=== PATIENT | female | born 1980 | race Caucasian/White ===

== ENCOUNTER 2019-10-16 16:29 | Emergency (ER) | payer BC, SELFPAY ==
--- NOTE | ~2019-10-16 | XR_ITS ---
EXAMINATION: XR wrist RT min 3V DATE: 10/16/2019 16:51 INDICATION: Diffuse right knee pain post fall TECHNIQUE: Posteroanterior, ulnar deviation, oblique, and lateral views of the right wrist were obtai sheree. COMPARISON: none FINDINGS: There appears to be slight widening of the scapholunate interval which could be seen with scapholunat e ligament tear. The carpal alignment however appears otherwise normal with no dorsal intercalated se gment instability (DISI). No fracture. Joint spaces are otherwise normal. Soft tissues are unremarkab le. IMPRESSION: 1. No fracture. 2. Slight widening of the scapholunate interval which could be seen with scapholunate ligament tear h owever there is no dorsal intercalated segment instability (DISI) to more specifically suggest this. Reviewed, dictated and finalized at location A. [employer] IMPRESSION: 1. No fracture. 2. Slight widening of the scapholunate interval which could be seen with scapho lunate ligament tear however there is no dorsal intercalated segment instabilit y (DISI) to more specifically suggest this.
[2019-10-16 16:43] VITALS: BP 124/77; PULSE 71; RESP 18; TEMP 37.2; O2SAT 99
--- NOTE | 2019-10-16 16:44 | ED.UPPEXIN ---
HPI - Extremity Injury (Upper) General Chief Complaint: Extremity Injury, Upper Stated Complaint: right wrist pain Time Seen by Provider: 10/16/19 16:44 Source: patient Mode of arrival: ambulatory Limitations: no limitations History of Present Illness HPI narrative: Tania Emerson is a 39 yo female with a PMH of Sfmhr-[id number]-Krpqt who fell while feeding animals in the barn today- onto all 4s. Pain in R wist, able to move arm Related Data Home Medications Medication Instructions Recorded Confirmed citalopram 20 mg DAILY 10/16/19 10/16/19 Allergies Allergy/AdvReac Type Severity Reaction Status Date / Time No Known Allergies Allergy Verified 10/16/19 16:44 Review of Systems Review of Systems: Narrative: CONSTITUTIONAL: Denies fever, chills, sweats. EYES: Denies visual changes, redness, discharge. ENT: Denies rhinorrhea, congestion, sore throat, otalgia. CARDIOVASCULAR: Denies chest pain, palpitations, edema. RESPIRATORY: Denies dyspnea, wheezing, cough GASTROINTESTINAL: Denies abdominal pain, nausea, vomiting, diarrhea. GENITOURINARY: Denies dysuria, hematuria, abnormal discharge SKIN: Denies rash or itching. Extremities; R wrist swollen and painful to move NEUROLOGIC: Denies numbness, or focal weakness. PSYCHIATRIC: Denies anxiety or depression. PMFSH Family History Family History Other Diabetes mellitus Hypertension Social History Social History (Updated 10/16/19 @ 17:25 by Shawnee Feliciano CNP) Smoking status: Never smoker Alcohol intake: never Gender identity (if verbalized by the patient): Female Comments At time of signature, I agree with nursing past medical, surgical, social and family history. There is no relevant family history pertinent to the presenting complaint. Exam Narrative: Exam Narrative: GENERAL: This is a well-nourished, well-developed patient, in no apparent distress. HEAD: normocephalic, atraumatic. EYES: PERRL. Sclera clear/white. Vision is grossly intact. EARS: External ears normal, NOSE: External nose normal . THROAT: Mucous membranes moist, NECK: Neck supple, non-tender without lymphadenopathy, CARDIOVASCULAR: Regular rate and rhythm without murmurs, gallops, or rubs. RESPIRATORY: Clear to auscultation. Breath sounds equal bilaterally. No wheezes, rales, or rhonchi. GASTROINTESTINAL: Abdomen soft, SKIN: warm, intact with no suspicious lesions or rash, good texture and turgor. NEURO: awake, alert, and oriented to person, place and time. There were no obvious focal neurologic abnormalities. Steady gait EXTREMITIES: Limited range of motion.Pian with supination, fair finger strength, poor opposition thumb to finger 4,5. edema. BACK: Nontender without deformity or crepitance. Course Course Emergency Course: Xray wrist: No fracture but widening of the scaphoid lunate interval indicating possible ligament tear patient placed in OCL and referred to orthopedics Vital Signs Vital signs: Vital Signs Temperature 99.0 F 10/16/19 16:43 Pulse Rate 71 10/16/19 16:43 Respiratory Rate 18 10/16/19 16:43 Blood Pressure 124/77 10/16/19 16:43 Pulse Oximetry 99 10/16/19 16:43 Temperature 99.0 F 10/16/19 16:43 Pulse Rate 71 10/16/19 16:43 Respiratory Rate 18 10/16/19 16:43 Blood Pressure 124/77 10/16/19 16:43 Pulse Oximetry 99 10/16/19 16:43 MDM - Extremity Injury (Upper) Differential Diagnosis Differential diagnosis: Likely sprain and strain of wrist, fracture of hand and other (Ligament tear) Discharge Plan Discharge Clinical Impression: Ligament tear Patient Disposition: Home, Self-Care Condition: Stable Instructions: Wrist Injury (ED) Prescriptions: New hydrocodone-acetaminophen [Ola] 5-325 mg tablet 1 tablet PO Q6H PRN (Reason: pain) Qty: 20 RF: 0 No Action citalopram 20 mg tablet 20 mg DAILY RF: 0 Follow-up/Referrals: Kev
== END 2019-10-16 17:33 | disposition home or self-care (01) ==
PROVIDERS: Emergency Provider Nurse Practitioner; PCP Internal Medicine
DX: S63.501A Unspecified sprain of right wrist, initial encounter (principal); X58.XXXA Exposure to other specified factors, initial encounter; I45.6 Pre-excitation syndrome
CPT/HCPCS: 29125; 73110; 99213; G0463

== ENCOUNTER 2021-08-21 15:31 | Outpatient (CLI) | payer OTHER, SELFPAY ==
--- NOTE | 2021-08-21 15:30 | ECG_ITS ---
Measurements Intervals [place] Rate: 73 P: 55 PA: 181 QRS: -24 QRSD: 90 T: -3 QT: 379 QTc: 418 Interpretive Statements SINUS RHYTHM WITH SINUS ARRHYTHMIA POSSIBLE LEFT ATRIAL ENLARGEMENT POSSIBLE LEFT VENTRICULAR HYPERTROPHY POOR R WAVE PROGRESSION, ANTERIOR LEADS BORDERLINE T WAVE ABNORMALITY- INFERIOR LEADS BASELINE ARTIFACT- I, III, AVR, AVL, AVF BORDERLINE ECG Electronically Signed On 08-21-2021 16:12:15 SIGN BOARD ERECTOR by Eligio Donaldson D.O.
== END 2021-08-21 15:32 | disposition home or self-care (01) ==
PROVIDERS: PCP Internal Medicine; Visit Provider Obstetrics & Gynecology
DX: I45.6 Pre-excitation syndrome (principal); Z01.818 Encounter for other preprocedural examination; R94.31 Abnormal electrocardiogram [ECG] [EKG]
CPT/HCPCS: 93005

== ENCOUNTER 2021-08-24 00:54 | Day surgery (SDC) | payer OTHER, SELFPAY ==
[2021-08-20 12:29] VITALS: BMI 45.7
--- NOTE | 2021-08-20 12:36 | PC.NURSE ---
Report to the Outpatient Waiting Room, entrance under the green pavilion located off [facility], at time 1030 on date 08/24/21. OR Time: 1230. - You will be asked a series of questions to screen for COVID 19 for your protection. - A mask is required within the hospital. - No visitors are allowed at this time. Preoperative COVID Testing Requirements: No COVID Test needed if: (proof is required; if not received patient will have Rapid Test prior to entry) - Patient has received COVID Vaccine at least 14 days prior to procedure date or - Patient has positive COVID test result within last 90 days of surgery date. COVID Test needed if above criteria is not met Patients may have clear liquids (water, carbonated beverages, clear teas, apple juice) until 3 hours prior to surgery with a maximum of 20 ounces. - No food from midnight until time of surgery Take the following medications with a SIP of water the morning of surgery: CITALOPRAM Medications to discontinue per physician: N/A Date to take last dose: N/A Please no make-up, nail greek, hairspray, perfume, deodorant, or body powder the day of surgery. No jewelry (including any body piercings) or valuables the day of surgery, leave them at home. Please take a shower or bath the night before, or the morning of, surgery with an antibacterial soap. Wear comfortable, loose fitting clothing. - Jewelry must be removed prior to entering the operating room. Rings and piercings that are not removed may be cut off. - The hospital will not accept responsibility for valuables. - Please leave all valuables, including medications, at home the day of surgery. If you are going home after surgery, a licensed sprinkler driver must drive you home. - NO public transportation without another adult. - We recommend that an adult stay with you for 24 hours following discharge. - We also recommend that you do not drive, make important decision, drink alcoholic beverages, or take any drugs that were not prescribed by your health care provider for at least 24 hours after your discharge time. Follow any additional instructions given to you from your surgeon. Telephone instructions given to ADEOLA DEVI and asked if any additional questions and then verbalized understanding. Patient advised to call surgeon office or pre surgery nurse liaison [phone] if any additional questions.
--- NOTE | 2021-08-22 06:28 | P.HP_ITS ---
H&P: HPI History of Present Illness Date/Time: 08/22/21 06:28 Chief Complaint: 41-year-old female 1 para 1 admitted for laparoscopic bilateral tubal ligation secondary to desiring no further pregnancies. She understands this to be a permanent and irreversible procedure. She was offered alternative treatments including but not exclusive of pills, patches, injections, long-term contraception. Failure rate of 10/999 with subsequent risk of ectopic bleeding and were reviewed. Risks and benefits of the procedure reviewed in full. She had all questions answered received the [employer]COG handout entitled sterilization for men and women. S he asked to proceed Review of Systems Review of Systems: All systems reviewed & are unremarkable except as noted in HPI and below PMFSH Family History Family History Other Diabetes mellitus Hypertension Social History Social History Smoking status: Never smoker Alcohol intake: current Drinks per week: 2 Substance use: never Substance use type: does not use Additional living arrangements comments: DAUGHTER Gender identity (if verbalized by the patient): Female Spiritual care concerns: No Meds Home Medications and Allergies Home Medications Medication Instructions Recorded Confirmed Type citalopram 20 mg PO DAILY 10/16/19 08/20/21 History Allergies Allergy/AdvReac Type Severity Reaction Status Date / Time Sulfa (Sulfonamide Allergy Hives Verified 08/20/21 12:28 Antibiotics) Exam Const: General: no acute distress Eyes: General: appearance normal, both eyes and all related structures Neck: Neck: supple and no JVD Thyroid: thyroid normal Resp: Effort & Inspection: normal respiratory effort Auscultation: clear to auscultation bilaterally Cardio: Rate: regular rate Rhythm: regular rhythm GI: Inspection: non-distended GI Palp: Yes Soft to palpation, No Tenderness to palpation present (GI) and No Guarding due to palpation present (GI) Auscultation: normal bowel sounds : General: Yes bladder normal to palpation External Female Exam: normal external appearance Speculum Exam - Vagina: normal vaginal discharge and No vaginal bleeding Speculum Exam - Cervix: nontender Bimanual exam- vagina & uterus: bladder normal to palpation and No Cervical tenderness present OB/external & speculum: No vaginal bleeding Skin: General skin exam: no rashes or lesions noted Extrem: General: normal to inspection and no edema Psych: Mental Status: mental status grossly normal Affect: normal affect Assessment and Plan Additional Plan impression: 41-year-old female who desires permanent sterilization Plan: Laparoscopic bilateral tubal ligation
[2021-08-24] VITALS (11 sets, daily range): BP systolic 98–156; BP diastolic 55–106; PULSE 62–81; RESP 12–20; TEMP 36.4–37; O2SAT 93–100; BMI 47.5
--- NOTE | 2021-08-24 07:09 | WPDHPUPDATE1 ---
History and Physical Update Update Date/Time: 08/24/21 07:09 History and Physical has been reviewed, including an updated exam of the patient. There are NO changes in the patient's condition. Risks, benefits, and alternatives have been discussed and questions answered. Patient agrees to proceed with procedure.
[2021-08-24] MEDS: ACETAMINOPHEN 500 MG TABLET 1000 MG PO (11:09)
[2021-08-24] MEDS: LACTATED RINGERS 1,000 ML 30 ML IV CONT ×2 (11:09→13:06)
[2021-08-24] MEDS: KETOROLAC 15 MG/ML VIAL (*BKC) IV PUSH (11:09)
--- NOTE | 2021-08-24 11:22 | WPDANESEPPF ---
Anes - Initial Pre Proc Eval Procedure: Operation Date: 08/24/21 12:30 Proposed Procedures p Bilateral Laparoscopic Tubal Ligation with Fallopian Rings - Dony Mann MD Date/Time: 08/24/21 11:22 Surgeon: Dony Mann MD Pre Op Diagnosis: desires sterilization Patient Data Age: 41 Gender: F Height: 1.57 m Weight: 117.7 kg Last Vital Signs Temp 36.4 C L 08/24/21 10:53 Pulse 76 08/24/21 10:53 Resp 16 08/24/21 10:53 BP 136/87 08/24/21 10:53 Pulse Ox 99 08/24/21 10:53 Allergies Allergy/AdvReac Type Severity Reaction Status Date / Time Sulfa (Sulfonamide Allergy Hives Verified 08/24/21 10:40 Antibiotics) Home Medications Medication Instructions Recorded Confirmed Type citalopram 20 mg PO DAILY 10/16/19 08/24/21 History hydrocodone-acetaminophen 1 tablet PO Q4H PRN #20 tablet 08/24/21 Rx Patient hx anesthesia problems: post op nausea/vomiting Family hx anesthesia problems: none Results Review: All pre-operative results and documents have been reviewed as part of the pre-operative evaluation. 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 Family History Family History Other Diabetes mellitus Hypertension Social History Social History Smoking status: Never smoker Alcohol intake: current Drinks per week: 2 Substance use: never Substance use type: does not use Living arrangements: with family Additional living arrangements comments: DAUGHTER Gender identity (if verbalized by the patient): Female Spiritual care concerns: No Anes - Eval Final PreProcedure Day of Procedure 08/24/21 11:22 Patient weight: morbidly obese Heart: regular rate and rhythm Lungs: clear to auscultation Airway: Mallampati scale class II Neurological: alert and oriented Last oral intake: >/= 8 hours ASA classification: III Emergent: no Anesthetic plan: proceed Anesthesia type and monitoring: general ETT and standard monitoring Results Review: All pre-operative results and documents have been reviewed as part of the pre-operative evaluation. Informed Consent: The patient's anesthetic plan and its attendant risks and benefits were discussed with the patient/family/POA. Questions were solicited and answers provided to the satisfaction of the patient/family/POA.
[2021-08-24] MEDS: SCOPOLAMINE 1.5 MG PATCH TRANSDERM (11:30)
--- NOTE | 2021-08-24 12:57 | W.PM.PROC2 ---
Procedure Note - Detailed Date of Procedure 08/24/21 Pre-op Diagnosis desires sterilization Post-op Diagnosis same Procedure Performed Laparoscopic bilateral tubal ligation via silastic rings Surgeon Dony Mann MD Anesthesia general Indications This is a 41-year-old female who desires permanent sterilization and refused nonpermanent methods Findings Mildly enlarged uterus. Normal-appearing tubes and ovaries. A small amount of adhesions on the from the left colon to the left lateral sidewall Description of Procedure The patient was prepped draped in the normal sterile fashion placed in the dorsal lithotomy position. Under excellent general trach anesthesia weighted speculum placed posterior fornix vagina. Anterior lip of the cervix grasped with a single-tooth tenaculum. The Rider's cannula inserted the cervix and attached to the single-tooth to be used later for uterine manipulation. After emptying the bladder of clear urine the weighted speculum was removed and gloves were changed. A supraumbilical incision made the Veress needle passed in the abdomen. Abdomen filled with CO2 gas to 15mm Hg. The 5mm trocar advanced under direct visualization assuring no injury. Patient placed in Trendelenburg and a suprapubic incision made. The 8mm trocar advanced in the abdomen under direct visualization assuring no injury. The right fallopian tube was grasped at its midportion a good knuckle of tube formed with excellent blanching and photo documentation taken. In like fashion the left fallopian tube was grasped at its midportion a good knuckle of tube made with the fallopian ring. Blanching was seen in photo documentation undertaken. No other abnormalities were seen in the lower site removed. The gas removed the abdomen the upper sites removed. The skin was closed with 4-0 Monocryl and glue and the instruments removed from vagina. All sponge, needle, instrument counts were correct. There were no immediate complications Estimated Blood Loss 5 Drains No Packing No Pathology none sent Complications No immediate complications Condition stable Disposition PACU
[2021-08-24] MEDS: fentaNYL CITRATE INJ (*CRX) 100 MCG/2 ML VIAL 25 MCG IV PUSH ×8 (13:36→14:01)
[2021-08-24] MEDS: ONDANSETRON INJ 4 MG/2 ML VIAL IV PUSH (13:46)
[2021-08-24] MEDS: HYDROmorphone HCL INJ (*CRX) 1 MG/ML SYR IV PUSH ×2 (14:16→14:28)
[2021-08-24] MEDS: oxyCODONE HCL (*CRX) 5 MG TAB IR PO (15:08)
== END 2021-08-24 16:04 | disposition home or self-care (01) ==
PROVIDERS: PCP Internal Medicine; Visit Provider Obstetrics & Gynecology
PROC: (CPT 58671; principal; 2021-08-24 12:30)
DX: Z30.2 Encounter for sterilization (principal); E66.01 Morbid (severe) obesity due to excess calories; Z68.42 Body mass index [BMI] 45.0-49.9, adult
CPT/HCPCS: 58671; A4264; A9270; J0330; J1100; J1170; J1885; J2250; J2405; J2704; J3010; J7120

== ENCOUNTER 2022-10-31 08:52 | Emergency (ER) | payer OTHER, SELFPAY ==
[2022-10-31 09:05] VITALS: BP 141/100; PULSE 90; RESP 16; TEMP 36.1; O2SAT 99
--- NOTE | 2022-10-31 09:12 | ED.URI ---
HPI - URI/Sore Throat General Chief Complaint: Upper Respiratory Infection Stated Complaint: Sore Throat Time Seen by Provider: 10/31/22 09:12 Source: patient, RN notes reviewed and old records reviewed Mode of arrival: ambulatory Limitations: no limitations History of Present Illness HPI Narrative: 42-year-old female who presents to [facility] with complaints 2-3 week duration of cough with congestion for which she has been taking antihistamines and OTC cold and flu medication. Patient denies any shortness of breath, denies any fevers chills or sweats. Patient reports for the past 2 days patient reports sore throat, fatigue, nausea without vomiting. Patient state that throat is very sore and has painful swallowing, rates her pain as 7/10 described as burning.Patient reports no known ill contacts. MD elicited complaint: cough, sore throat, rhinorrhea and nasal congestion Onset (ago): day(s) (sore throat 2 days, cough and congestion 2-3 week) Severity: severe Pain scale (0-10): 7 Able to tolerate fluids by mouth: Yes Exacerbating factors: swallowing Treatments prior to arrival: other (antihistamine, cold and flu medication OTC medication) Related Data Allergies Allergy/AdvReac Type Severity Reaction Status Date / Time Sulfa (Sulfonamide Allergy Hives Verified 10/31/22 09:11 Antibiotics) Review of Systems Review of Systems: CONSTITUTIONAL: Reports general malaise,no chills, sweats, or fever, positive for fatigue. EYES: Denies visual changes, redness, or discharge. ENT: Reports rhinorrhea, congestion, no sinus pain,positive for pressure in ears. positive sore throat. CARDIOVASCULAR: Denies chest pain, palpitations, or edema. RESPIRATORY: Reports cough.? Denies dyspnea. GASTROINTESTINAL: Denies abdominal pain,reports nausea, no vomiting, diarrhea SKIN: Denies rash or itching. MUSCULOSKELETAL: Denies myalgia. NEUROLOGIC: Denies headache. 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 Komal, [employer]) H/O cardiac catheterization H/O cardiac radiofrequency ablation Previous section Family History Family History Other Diabetes mellitus Hypertension Social History Social History Smoking status: Never smoker Alcohol intake: current Drinks per week: 2 Substance use: never Substance use type: does not use Living arrangements: with family Additional living arrangements comments: DAUGHTER Gender identity (if verbalized by the patient): Female Sexual Orientation (if Verbalized by the Patient): Straight or Heterosexual Spiritual care concerns: No Comments At time of signature, agree with nursing past medical, surgical, social and family history. There is no relevant family history pertinent to the presenting complaint Exam Narrative: GENERAL: Well-appearing, well-nourished, and in no acute distress. HEAD: Normocephalic EYES: PERRLA, conjunctivae clear ENT: Nares clear, turbinates edematous and erythematous, clear discharge. Mucous membranes moist. TM pearly ruiz with dull light reflex bilaterally; no tragal tenderness. Oropharynx erythematous without lesions. Tonsils red enlarged and with exudates, no drooling, no hoarseness, no trismus, uvula midline red swollen with white exudates. NECK: Supple. lymphadenopathy CHEST: Clear to auscultation, breath sounds equal. No wheezing, rhonchi, rales, or stridor. No respiratory distress, speaks in full sentences.harsh cough, SAO2 99% on room air HEART: Regular rate and rhythm. No murmur heard. SKIN: Warm, dry, no rash. NE
== END 2022-10-31 09:30 | disposition home or self-care (01) ==
PROVIDERS: Emergency Provider Registered Nurse
DX: J02.0 Streptococcal pharyngitis (principal); R05.1 Acute cough; E66.01 Morbid (severe) obesity due to excess calories; Z68.42 Body mass index [BMI] 45.0-49.9, adult; I45.6 Pre-excitation syndrome
CPT/HCPCS: 87880; 99213; G0463